=== PATIENT | female | born 1980 | race Caucasian/White ===

== ENCOUNTER → 2020-07-12 | Outpatient (CLI) | payer OTHER ==
--- NOTE | 2020-07-12 11:04 | CT ---
EXAMINATION TYPE: CT soft tissue neck wo/w con DATE OF EXAM: 07/12/2020 HISTORY: Localized swelling, mass, lump COMPARISON: NONE CT DLP: 510.30 mGycm. Automated Exposure Control for Dose Reduction was Utilized. TECHNIQUE: CT scan of the neck is performed without and with IV Contrast, patient injected with 100 ml mL of Isovue 300, axial images are obtained, coronal and sagittal reformatted images are reviewed. FINDINGS: Airway: Scattered bilateral thyroid nodules can be better evaluated and characterized with thyroid ul trasound if desired. Parotid/submandibular glands: No gross abnormality seen. Carotid/Vascular Structures: Bovine type arch which is normal variant. Osseous Structures: Loss of normal cervical curvature . Other: No concerning solid or cystic mass or abnormal fluid collection identified. No abnormal greate r than 1 cm neck adenopathy. Parapharyngeal fat spaces are maintained bilaterally. IMPRESSION: No concerning mass. Multinodular thyroid, ultrasound follow-up is advised to further annalee luate this is not known finding.
== END | disposition home or self-care (01) ==
LOC: RADCTMAIN 07:50
PROVIDERS: ATTEND Otolaryngology Otolaryngology/Facial Plastic Surgery
DX: E04.2 Nontoxic multinodular goiter (principal)
CPT/HCPCS: 70492; Q9967